=== PATIENT | female | born 1945 | race Caucasian/White ===

== ENCOUNTER 2021-04-17 08:54 | Outpatient (CLI) | payer MEDICARE, BC | END 2021-04-17 08:55 | disposition home or self-care (01) | LOC: CSHULT 08:54 | PROVIDERS: ATTEND Internal Medicine | DX: N28.9 Disorder of kidney and ureter, unspecified (principal) | CPT/HCPCS: 76770 ==

== ENCOUNTER 2023-01-09 14:23 | Outpatient (CLI) | payer MEDICARE, BC | END 2023-01-09 14:24 | disposition home or self-care (01) | LOC: CSHULT 14:23 | PROVIDERS: ATTEND Internal Medicine | DX: N18.32 Chronic kidney disease, stage 3b (principal) | CPT/HCPCS: 76770 ==

== ENCOUNTER 2025-03-29 09:36 | Outpatient (CLI) | payer MEDICARE, BC | END 2025-03-29 09:37 | disposition home or self-care (01) | LOC: CSHMAMMO 09:36 | PROVIDERS: ATTEND Internal Medicine | DX: R92.8 Other abnormal and inconclusive findings on diagnostic imaging of breast (principal) | CPT/HCPCS: 77065; G0279 ==